=== PATIENT | female | born 1960 ===

== ENCOUNTER → 2017-08-05 | Emergency (ER) | payer OTHER ==
[~2017-08-05] VITALS: Ht 261.6 cm; Wt 83.0 kg
[~2017-08-05] MED LIST: BENZONATATE200 M1 PO; HYZAAR 100-251 UDTAB PO; LEVAQUIN500 MG PO; SYNTHROID137 MCG PO
== END | disposition home or self-care (01) ==
LOC: ER 19:36
DX: J06.9 Acute upper respiratory infection, unspecified (principal)

== ENCOUNTER → 2017-11-19 | Emergency (ER) | payer OTHER ==
[~2017-11-19] VITALS: Ht 160 cm; Wt 83.9 kg
[~2017-11-19] MED LIST changes: +ASPIR 8181 MG; +ZYNCOF 20-400120 ML
== END | disposition left against medical advice (07) ==
LOC: ER 22:59
DX: Z53.20 Procedure and treatment not carried out because of patient's decision for unspecified reasons (principal)

== ENCOUNTER 2017-12-31 06:19 | Day surgery (SDC) | payer OTHER | END 2017-12-31 09:40 | disposition home or self-care (01) | LOC: AMB-ENDOS 06:19 | DX: C19 Malignant neoplasm of rectosigmoid junction (principal); K64.1 Second degree hemorrhoids ==

== ENCOUNTER 2020-06-28 06:50 | Day surgery (SDC) | payer OTHER | END 2020-06-28 12:40 | disposition home or self-care (01) | LOC: AMB-ENDOS 06:50 | PROVIDERS: ATTEND Colon & Rectal Surgery | DX: K62.89 Other specified diseases of anus and rectum (principal); K64.1 Second degree hemorrhoids; Z20.828 Contact with and (suspected) exposure to other viral communicable diseases ==

== ENCOUNTER 2021-08-13 14:49 | Emergency (ER) | payer OTHER ==
[~2021-08-13] VITALS: Ht 160 cm; Wt 81.6 kg
[2021-08-13] MEDS ORDERED: SYNTHROID175 MCG PO (15:17)
[2021-08-13] MEDS ORDERED: HYDROCHLOROTH12.5 MG PO (15:17)
[2021-08-13] MEDS ORDERED: [UNRECOGNIZED DRUG - OTHER] PO (15:17)
== END 2021-08-13 16:00 | disposition home or self-care (01) ==
LOC: ER 14:49
DX: T78.49XA Other allergy, initial encounter (principal); X58.XXXA Exposure to other specified factors, initial encounter; Z91.018 Allergy to other foods; I10 Essential (primary) hypertension